=== PATIENT | male | born 1975 | race Caucasian/White ===

== ENCOUNTER → 2024-04-21 06:03 | Outpatient (REF) | payer OTHER, SELFPAY ==
[2024-04-21 09:45] LABS: Hematocrit 40.8 % (39.0-52.0); Hemoglobin 13.9 g/dL (13.0-18.0); Mean Corp Hgb Conc. 34.1 g/dL (33.0-37.0); Mean Corpuscular Hgb 31.7 pg (27.0-31.0); Mean Corpuscular Volume 93.2 fL (80.0-94.0); Mean Platelet Volume 10.1 fL (7.4-10.4); Platelet Count 228 10^3/uL (130-400); Red Blood Cell Count 4.38 10^6/uL (4.70-6.10); Red Cell Dist. Width 12.3 % (11.5-14.5); White Blood Cell Count 9.7 10^3/uL (4.8-10.8)
[2024-04-21 11:24] LABS: Microalbumin, Random Urine 0.6 mg/dl (0.6-1.7)
[2024-04-21 11:27] LABS: Microalbumin/creatinine Ratio 3.3 mg/g
[2024-04-21 11:38] LABS: ALT (SGPT) 19 U/L (0-50); AST (SGOT) 21 U/L (17-59); Albumin 4.3 g/dl (3.5-5.0); Alkaline Phosphatase 76 U/L (38-126); Blood Urea Nitrogen 18 mg/dl (9-20); Calcium 9.6 mg/dl (8.4-10.2); Carbon Dioxide 25 mmol/L (22-30); Chloride 104 mmol/L (98-107); Glucose 118 mg/dl (70-99); HDL Cholesterol 45 mg/dl; LDL Cholesterol, Calculated 36 mg/dl; Potassium 4.3 mmol/L (3.5-5.1); Sodium 142 mmol/L (135-145); Total Bilirubin 0.8 mg/dl (0.2-1.3); Total Cholesterol 98 mg/dl (50-199); Total Protein 7.1 g/dl (6.3-8.2); Triglyceride 86 mg/dl (10-149); Very Low Density Lipoprotein 17 mg/dl (0-30); eGFR > 60.00
== END ==
LOC: HWLAB 06:03
PROVIDERS: ATTENDING PHYSICIAN Physician Assistant; FAMILY PHYSICIAN Family Medicine
DX: E11.65 Type 2 diabetes mellitus with hyperglycemia (principal)
CPT/HCPCS: 36415; 80053; 80061; 82043; 82570; 83036; 85027

== ENCOUNTER → 2024-08-05 14:18 | Outpatient (REF) | payer OTHER, SELFPAY | LOC: HWRAD 14:18 | PROVIDERS: ATTENDING PHYSICIAN Internal Medicine Critical Care Medicine; FAMILY PHYSICIAN Family Medicine | DX: R91.8 Other nonspecific abnormal finding of lung field (principal) | CPT/HCPCS: 71250 ==

== ENCOUNTER → 2024-08-13 06:01 | Outpatient (REF) | payer OTHER, SELFPAY ==
[2024-08-13 09:28] LABS: % Basophils 0.9 % (0-2); % Eosinophils 1.3 % (0-6); % Immature Granulocytes 0.2 % (0-0.5); % Lymphocytes 23.9 % (20.5-51.1); % Monocytes 6.4 % (1.7-9.3); % Neutrophils 67.3 % (42.2-75.2); Absolute Basophils 0.1 10^3/uL (0-0.2); Absolute Eosinophils 0.1 10^3/uL (0-0.7); Absolute Lymphocytes 2.2 10^3/uL (1.2-3.4); Absolute Monocytes 0.6 10^3/uL (0.1-0.6); Absolute Neutrophils 6.3 10^3/uL (1.4-6.5); Hematocrit 44.1 % (39.0-52.0); Hemoglobin 14.8 g/dL (13.0-18.0); Mean Corp Hgb Conc. 33.6 g/dL (33.0-37.0); Mean Corpuscular Hgb 30.5 pg (27.0-31.0); Mean Corpuscular Volume 90.9 fL (80.0-94.0); Nucleated Red Blood Cells % 0 % (-); Platelet Count 208 10^3/uL (130-400); Red Blood Cell Count 4.85 10^6/uL (4.70-6.10); Red Cell Dist. Width 12.4 % (11.5-14.5); White Blood Cell Count 9.3 10^3/uL (4.8-10.8)
[2024-08-13 10:26] LABS: Glycohemoglobin (HgbA1c) 6.1 % (4.0-5.6)
[2024-08-13 11:10] LABS: Microalbumin, Random Urine 1.5 mg/dl (0.6-1.7); Microalbumin/creatinine Ratio 5.3 mg/g
[2024-08-13 11:37] LABS: IgG 1157 mg/dl (700-1600)
[2024-08-13 11:47] LABS: ALT (SGPT) 17 U/L (0-50); AST (SGOT) 20 U/L (17-59); Albumin 4.8 g/dl (3.5-5.0); Alkaline Phosphatase 102 U/L (38-126); Blood Urea Nitrogen 22 mg/dl (9-20); Calcium 9.6 mg/dl (8.4-10.2); Carbon Dioxide 27 mmol/L (22-30); Chloride 101 mmol/L (98-107); Glucose 110 mg/dl (70-99); HDL Cholesterol 51 mg/dl; LDL Cholesterol, Calculated 37 mg/dl; Potassium 4.2 mmol/L (3.5-5.1); Sodium 139 mmol/L (135-145); Total Bilirubin 1.1 mg/dl (0.2-1.3); Total Cholesterol 107 mg/dl (50-199); Total Protein 7.6 g/dl (6.3-8.2); Triglyceride 99 mg/dl (10-149); Very Low Density Lipoprotein 19 mg/dl (0-30); eGFR > 60.00
[2024-08-14 19:23] LABS: Alternaria tenuis <0.10 kU/L (<=0.34); Aspergillus fumigatus 0.13 kU/L (<=0.34); Bermuda Grass 3.91 kU/L (<=0.34); Birch Tree 2.59 kU/L (<=0.34); Box Elder/Maple Tree 3.57 kU/L (<=0.34); Cat Epithelium/Dander 0.13 kU/L (<=0.34); Common Pigweed 3.11 kU/L (<=0.34); Cottonwood Tree 3.42 kU/L (<=0.34); Dermatophagoides farinae 2.45 kU/L (<=0.34); Dermatophagoides pteronyssinus 1.95 kU/L (<=0.34); Dog Dander 0.36 kU/L (<=0.34); Elm Tree 3.59 kU/L (<=0.34); German Cockroach 2.93 kU/L (<=0.34); Hormodendrum <0.10 kU/L (<=0.34); IgE 112 kU/L (<=214); Mountain Cedar Tree 2.46 kU/L (<=0.34); Mouse Epithelium <0.10 kU/L (<=0.34); Mucor racemosus 2.53 kU/L (<=0.34); Mugwort Weed 2.96 kU/L (<=0.34); Oak Tree 3.19 kU/L (<=0.34); Penicillium notatum <0.10 kU/L (<=0.34); Sheep Sorrel Weed 4.06 kU/L (<=0.34); Sycamore Tree 3.52 kU/L (<=0.34); Timothy Grass 4.42 kU/L (<=0.34); Walnut Tree 3.28 kU/L (<=0.34); White Ash Tree 3.99 kU/L (<=0.34); White Mulberry Tree 2.09 kU/L (<=0.34)
[2024-08-15 00:45] LABS: IgG Subclass 1 494 mg/dL (240-1118); IgG Subclass 2 548 mg/dL (124-549); IgG Subclass 3 72 mg/dL (21-134); IgG Subclass 4 53 mg/dL (1-123)
== END ==
LOC: HWLAB 06:01
PROVIDERS: ATTENDING PHYSICIAN Internal Medicine Critical Care Medicine; FAMILY PHYSICIAN Family Medicine; REFERRING PHYSICIAN Physician Assistant
DX: E11.9 Type 2 diabetes mellitus without complications (principal); Z79.4 Long term (current) use of insulin; J44.9 Chronic obstructive pulmonary disease, unspecified; Z87.09 Personal history of other diseases of the respiratory system
CPT/HCPCS: 36415; 80053; 80061; 82043; 82103; 82104; 82570; 82784; 82785; 82787; 83036; 85025; 86003

== ENCOUNTER → 2025-01-05 06:03 | Outpatient (REF) | payer OTHER, SELFPAY ==
[2025-01-05 09:28] LABS: Hematocrit 42.1 % (39.0-52.0); Hemoglobin 14.3 g/dL (13.0-18.0); Mean Corp Hgb Conc. 34.0 g/dL (33.0-37.0); Mean Corpuscular Volume 91.9 fL (80.0-94.0); Platelet Count 216 10^3/uL (130-400); Red Cell Dist. Width 12.4 % (11.5-14.5)
[2025-01-05 09:53] LABS: ALT (SGPT) 16 U/L (0-50); AST (SGOT) 17 U/L (17-59); Albumin 4.5 g/dl (3.5-5.0); Alkaline Phosphatase 85 U/L (38-126); Blood Urea Nitrogen 24 mg/dl (9-20); Calcium 9.4 mg/dl (8.4-10.2); Carbon Dioxide 27 mmol/L (22-30); Chloride 104 mmol/L (98-107); Glucose 117 mg/dl (70-99); Potassium 4.3 mmol/L (3.5-5.1); Sodium 140 mmol/L (135-145); Total Protein 7.5 g/dl (6.3-8.2); eGFR > 60.00
[2025-01-05 10:51] LABS: Glycohemoglobin (HgbA1c) 5.9 % (4.0-5.6)
== END ==
LOC: HWLAB 06:03
PROVIDERS: ATTENDING PHYSICIAN Physician Assistant; FAMILY PHYSICIAN Family Medicine
DX: E11.65 Type 2 diabetes mellitus with hyperglycemia (principal)
CPT/HCPCS: 36415; 80053; 83036; 85027